=== PATIENT | male | born 1980 | race Caucasian/White ===

== ENCOUNTER 2017-01-08 12:24 | Emergency (ER) | payer BC ==
--- NOTE | 2017-01-08 12:46 | Emergency Department Record ---
History of Present Illness - General Chief complaint: ENT Stated complaint: sore throat Time Seen by Provider: 01/08/17 12:46 Source: Patient Mode of Arrival: Ambulatory Limitations: No limitations - History of Present Illness Initial comments: The patient is here due to a one day hx of a mild ST. He denies any fever, voice changes, BEDOYA or rash. The patient is concerned about getting Strep throat due to having 2 children at home. MD complaint: Sore throat Onset/Timin -: Days(s) Location: Throat Severity: Mild Quality: Burning Consistency: Intermittent Improves with: NSAID Worsens with: Eating - Related Data Previous Rx's Medication Instructions Recorded Prednisone [Prednisone 20Mg] 40 mg PO DAILY #6 tab 01/08/17 Allergies Allergy/AdvReac Type Severity Reaction Status Date / Time cefaclor [From Ceclor] Allergy Intermediate RASH Unverified 04/03/16 10:32 aspirin AdvReac Mild MAKES THE Unverified 04/03/16 10:32 PAIN WORSE Travel Screening - Travel/Exposure Within Last 30 Days Have you traveled within the last 30 days?: No - Travel/Exposure Within Last Year Have you traveled outside the [place] in the last year?: No - Additonal Travel Details Have you been exposed to anyone with a communicable illness?: No - Travel Symptoms Symptom Screening: None Review of Systems Constitutional: Denies: Chills, Fever Eyes: Denies: Eye discharge ENT: Denies: Congestion Respiratory: Denies: Cough, Dyspnea Past Medical History - SOCIAL HISTORY Smoking Status: Current every day smoker Alcohol Use: Rare, Occassional Drug Use: None - RESPIRATORY Hx Respiratory Disorders: Yes Hx Asthma: Yes - CARDIOVASCULAR Hx Cardio Disorders: No - NEURO Hx Neuro Disorders: No - GI Hx GI Disorders: No - Hx Genitourinary Disorders: No - ENDOCRINE Hx Endocrine Disorders: No - MUSCULOSKELETAL Hx Musculoskeletal Disorders: No - PSYCH Hx Psych Problems: No - HEMATOLOGY/ONCOLOGY Hx Hematology/Oncology Disorders: No Family Medical History Any Significant Family History?: Yes Hx Heart Disease: Grandparents Physical Exam - General General Appearance: Alert, Oriented x3, Cooperative, No acute distress - Head Head exam: Atraumatic, Normocephalic, Normal inspection - Eye Eye exam: Normal appearance, PERRL - ENT ENT exam: Normal exam, Mucous membranes moist, Normal external ear exam, TM's normal bilaterally. negative: Normal orophraynx Throat exam: Tonsillar erythema. negative: Normal inspection, Tonsillomegaly, Tonsillar exudate - Neck Neck exam: Normal inspection, Full ROM. negative: Lymphadenopathy, Meningismus , Tenderness - Respiratory Respiratory exam: Normal lung sounds bilaterally. negative: Respiratory distress - Cardiovascular Cardiovascular Exam: Regular rate, Normal rhythm, Normal heart sounds Course Vital Signs 01/08/17 12:36 Temperature 98.2 F Pulse Rate 109 H Respiratory 18 Rate Blood Pressure 144/94 Pulse Ox 97 - Reevaluation(s) Reevaluation #1: I did discuss the neg strep with the patient and the need for F/U. 01/08/17 13:20 Medical Decision Making - Data Complexity MDM Data: Labs Ordered and/or Reviewed (Strep: Neg.) Disposition Disposition: Discharge Clinical Impression: Pharyngitis Qualifiers: Pharyngitis/tonsillitis etiology: other specified organisms Qualified Code(s): J02.8 - Acute pharyngitis due to other specified organisms Disposition: Home, Self-Care Condition: (1) Good Instructions: Pharyngitis (ED) Additional Instructions: Please use Tylenol or Motrin for pain and take the Prednisone. Please see your PCP later this week for recheck. Return to the ER for any increased pain, fever , or trouble breathing. Prescriptions: Prednisone [Prednisone 20Mg] 40 mg PO DAILY #6 tab Forms: Patient Portal Access Time of Disposition: 13:22
== END 2017-01-08 13:37 | disposition home or self-care (01) ==
LOC: ER 12:24
DX: J02.8 Acute pharyngitis due to other specified organisms (principal)
CPT/HCPCS: 87880; 99282